=== PATIENT | male | born 1990 | race Native Hawaiian/Other Pacific Islander ===

== ENCOUNTER 2016-10-30 17:35 | Emergency (ER) | payer SELFPAY ==
[2016-10-30 17:41] VITALS: BP 123/77; PULSE 102; RESP 16; O2SAT 97
--- NOTE | 2016-10-30 17:58 | ED.REPORT ---
HPI- Male Date of Service Oct 30, 2016 ED Provider: Ajay Conley MD A healthy 26 year old male presents to the ED with abdominal pain onset two weeks ago. Associated symptoms include back pain, fever (38.7 in ED), swollen lymph nodes, vomiting, dysuria, and right testicle pain and swelling onset last night. The patient denies cough or diarrhea. 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 Nursing Notes Stated Complaint: FEVER, VOMITING, DIZZY Chief Complaint: Male Abdominal Pain Nursing Notes Reviewed: Yes Allergies: Coded Allergies: No Known Allergies (Unverified , 10/30/16) General Time Seen by MD: 17:57 Chief Complaint Abdominal pain... Hx Obtained From: Patient Arrived By: Walk-in Onset Occurred: More than a week ago... (2 weeks) Symptom Duration: Since onset Location: : Abdomen lower: Abdomen upper: Testicle right Quality: Painful Severity: Current: Moderate Severity: Maximum: Moderate Associated with: Reports: Fever, Scrotal swelling, Vomiting Pertinent Negative: Relieved by nothing Recent Healthcare: No recent doctor visit Similar Sx Previous: No Past Medical History Past Medical History None reported Past Surgical History None reported Smoking History Unknown if Ever Smoker Social History Alcohol Use: "Social" Drug Use: Denies drug use Other Social History: Good social support, From out of town Ambulatory Status Independent Review of Systems Constitutional: Reports: Fever (38.7 in ED) GI: Reports: Abdominal pain, Vomiting, Denies: Diarrhea Male: Reports Dysuria, Reports Testicular pain (Right), Reports Testicular swelling (Right) Musculoskeletal: Reports: Back pain Complete sys rev & neg: except as marked. Respiratory: Denies: Non-productive cough Hematologic: Reports Adenopathy (Cervical) Physical Exam Physical Exam Notes: Initial Vital Signs Vital Signs (First) Date Time Temp Pulse Resp B/P Pulse Ox O2 Delivery O2 Flow Rate FiO2 10/30/16 17:41 38.7 102 16 123/77 97 Room Air Initial VS: Reviewed Head / Eyes: Atraumatic, Normocephalic Neck: Supple, Full range of motion Respiratory: Breath sounds normal, Clear to auscultation, No respiratory distress Cardiovascular: Regular rate & rhythm, Heart sounds normal, Intact distal pulses Abdomen / GI: Soft, Non-tender Skin: Warm, Dry, No cyanosis Neurologic: Alert, Oriented, Nonfocal Psychiatric: Mood/affect normal, Behavior normal, Normal thought content Male Genitourinary: Atraumatic, No penile discharge, No mass Testes / Epidid / Scrotum: Positive: Testis enlarged R, Testis tender R ENT: Airway patent, Mucous membranes moist Parotid swelling Lymphatic: No inguinal adenopathy Interpretation & Diagnostics Lab Results Interpretation Result Diagram: 10/30/16 1950 10/30/16 1950 Test 10/30/16 19:50 10/30/16 20:15 White Blood Count 9.5th/mm3 (3.8-10.1) Red Blood Count 4.96mil/mm3 (4.40-5.80) Hemoglobin 14.9g/dL (13.8-17.2) Hematocrit 43.1% (41.0-50.0) Mean Corpuscular Volume 86.9fL (81-100) Mean Corpuscular Hemoglobin 30.0pg (27.0-35.0) Mean Corpuscular Hemoglobin Concent 34.6% (32.0-37.0) Red Cell Distribution Width 12.1% (12.3-15.4) Platelet Count 186bil/L (150-400) Neutrophils (%) (Auto) 73.5% (40-74) Lymphocytes (%) (Auto) 15.4% (14-46) Monocytes (%) (Auto) 9.7% (4-12) Eosinophils (%) (Auto) 0.7% (0-5) Basophils (%) (Auto) 0.4% (0-3) Sodium Level 135mEq/L (134-144) Potassium Level 3.8mEq/L (3.5-5.2) Chloride Level 98mEq/L (97-108) Carbon Dioxide Level 22mmol/L (18-29) Blood Urea Nitrogen 11mg/dL (6-20) Creatinine 1.01mg/dL (0.76-1.27) Estimat Glomerular Filtration Rate 96mL/min (>59) Glucose Level 103mg/dL (60-99) Calcium Level 8.5mg/dL (8.5-10.1) Total Bilirubin 0.3mg/dL (0.0-1.2) Aspartate Amino Transf (AST/SGOT) 26U/L (0-50) Alanine Aminotransferase (ALT/SGPT) 15U/L (0-44) Alkaline Phosphatase 61U/L (25-150) Total Protein 7.7g/dL (6.4-8.4) Albumin 4.1g/dL (3.4-5.0) Hold Bledsoe Top Tube Received (Received) Urine Color Yellow (YELLOW) Urine Appearance Clear (CLEAR,HAZY) Urine pH 8.0 (5.0-8.0) Urine Specific [place] 1.010 (1.003-1.035) Urine Protein Negativemg/dL (NEG,TRACE) Urine Glucose (UA) Negativemg/dL (NEGATIVE) Urine Ketones Negativemg/dL (NEGATIVE) Urine Occult Blood Trace (NEGATIVE) Urine Nitrite Negative (NEGATIVE) Urine Bilirubin Negative (NEGATIVE) Urine Urobilinogen 2.0mg/dL (NORMAL) Urine Leukocyte Esterase Negative (NEGATIVE) Urine RBC 0-2/hpf (0-2) Urine WBC 0-5/hpf (0-5) Urine Epithelial Cells Occasional/hpf (NONE-MOD) Urine Crystals None seen (NONE SEEN) Urine Bacteria None/hpf (NONE-FEW) Urine Hyaline Casts None/lpf (NONE) Urine Granular Casts None seen (NONE SEEN) Urine Waxy Casts None seen (NONE SEEN) Urine Red Blood Cell Casts None seen (NONE SEEN) Urine White Blood Cell Casts None seen (NONE SEEN) Urine Mucus None seen (None Seen) Urine Trichomonas None seen (NONE SEEN) Urine Yeast None (NONE SEEN) Urinalysis Comment None Urine Culture Reflexed Not indicated Re-Eval/Medical Decision Re-Evaluation/Progress : Time of Eval: 20:54 Patient Status: Condition improved Re-Evaluation/Progress Note: Discussed with patient lab results, diagnosis, and plan for discharge. Follow-up and return to the ER instructions given. Patient agrees with plan for care and all questions were addressed. Counseled Regarding: Diagnosis, Lab results, Need for follow-up, When/why to return to ED Discharge & Departure Impression: Primary Impression: Parotitis Additional Impression: Orchitis Disposition: Home Discharge Condition All VS Reviewed: Yes Condition: Stable Patient Instructions: Acute Abdominal Pain (ED) Additional Instructions: Thank you for entrusting us with your care. Your exam today was reassuring for any life threatening illness. Recently we have seen a number of people from [facility] with similar symptoms. Sometimes the swelling in the face and the swelling the testicle can be indicative of mumps. Follow up at the infectious disease clinic this week for further evaluation. There is no specific treatment available for mumps. There are other possibilities included sexually transmitted disease for which you have been completely treated. I recommend ibuprofen 800 mg every 8 hours as needed for pain. Return to the ER with any new or worsening symptoms. Referrals: [facility] Herbert Aguirre MD 3 to 4 Days Scribe Attestation Portions of this note were transcribed by Serena Comer. I, Dr. Conley, personally performed the history, physical exam, and medical decision-making; I reviewed and confirmed the accuracy of the information in the transcribed note. Signed by: Zuleyma aSavedra, 10/30/2016, 21:00 copies to: [facility]; Herbert Aguirre MD, Kirk H MD Oct 30, 2016 17:58 SERENA COMER Oct 30, 2016 18:01
[2016-10-30] MEDS ORDERED: cefTRIAXone Inj 250 MG, Lidocaine PF 1% Inj 0.9 ML in Syringe 1 EACH IM ONE (19:20)
[2016-10-30] MEDS ORDERED: Ketorolac 30 mg/mL 2 mL Inj IM ONE (19:20)
[2016-10-30 20:04] LABS: BASOPHILS % (AUTO) 0.4 % (0-3); EOSINOPHILS % (AUTO) 0.7 % (0-5); MONOCYTES % (AUTO) 9.7 % (4-12); Mean Corpuscular Volume 86.9 fL (81-100); NEUTROPHILS % (AUTO) 73.5 % (40-74); Platelet Count 186 bil/L (150-400)
[2016-10-30 20:40] LABS: APPEARANCE,URINE CLEAR (CLEAR,HAZY); COLOR,URINE YELLOW (YELLOW); OCCULT BLOOD,URINE TRACE (NEGATIVE)
[2016-10-30 21:15] VITALS: BP 109/63; PULSE 87; RESP 16; O2SAT 98
[2016-10-30 21:16] VITALS: BP 109/63; PULSE 87; RESP 16; O2SAT 98
== END 2016-10-30 21:16 | disposition home or self-care (01) ==
LOC: SED 17:35
DX: K11.20 Sialoadenitis, unspecified (principal); N45.2 Orchitis; M54.9 Dorsalgia, unspecified; R30.0 Dysuria; R50.9 Fever, unspecified
CPT/HCPCS: 36415; 80053; 81000; 85025; 87491; 87591; 96372; 99284; J0696; J1885